=== PATIENT | male | born 1975 | race African-American/Black ===

== ENCOUNTER 2018-01-13 03:58 | Emergency (ER) | payer OTHER ==
[~2018-01-13] VITALS: Ht 188 cm; Wt 81.6 kg
--- NOTE | 2018-01-13 04:15 | NUR ---
TO BED 11 AMBULATORY C/O SI WITH PLAN, "WANT TO JUMP OFF FREEWAY". PT AAOX4 NO ACUTE DISTRESS NOTED, RESP EVEN AND UNLABORED. PT CALM AND COOPERATIVE AT THIS TIME. URINE SAMPLE COLLECTED AND SENT TO LAB.
--- NOTE | 2018-01-13 04:32 | NUR ---
ER MD AT BEDSIDE TO EVAL PT WITH ORDERS RECEIVED.
--- NOTE | 2018-01-13 04:50 | NUR ---
BLOOD DRAWN BY SAWMILL OR TIMBER YARD WORKER.
[2018-01-13 04:59] LABS: BASOPHILS % (AUTO) 0.8 % (0.0-2.0); EOSINOPHILS % (AUTO) 3.2 % (0.0-6.0); HEMATOCRIT 42 % (39-51); HEMOGLOBIN 14.3 g/dL (13.5-17.5); LYMPHOCYTES # (AUTO) 2.1 /CMM (0.8-4.8); LYMPHOCYTES % (AUTO) 42.5 % (20.0-44.0); MEAN CORPUSCULAR HGB CONC 34 g/dl (31.0-36.0); MEAN CORPUSCULAR VOLUME 92 fL (80-96); MONOCYTES # (AUTO) 0.4 /CMM (0.1-1.30); MONOCYTES % (AUTO) 8.3 % (2.0-12.0); NEUTROPHILS # (AUTO) 2.2 /CMM (1.8-8.9); NEUTROPHILS % (AUTO) 45.2 % (43.0-81.0); PLATELET COUNT (AUTO) 233 /CMM (150-450); RDW COEFFICIENT OF VARIATION 15.3 (11.5-15.0); WHITE BLOOD COUNT (AUTO) 4.8 K/uL (4.3-11.0)
[2018-01-13 05:10] LABS: CALCIUM, SERUM 8.9 mg/dL (8.5-10.1); CARBON DIOXIDE 28 mmol/L (21-32); CHLORIDE 104 mmol/L (98-107); GLUCOSE 69 mg/dL (74-106); POTASSIUM 4.3 mmol/L (3.5-5.1); SODIUM SERUM 139 mmol/L (136-145); UREA NITROGEN, BLOOD 21 mg/dL (7-18)
[2018-01-13 05:20] LABS: ALANINE AMINOTRANSFERASE 37 U/L (12-78); ALBUMIN 3.7 g/dL (3.4-5.0); ALCOHOL, BLOOD < 3 mg/dL (0-0); ALKALINE PHOSPHATASE 79 U/L (46-116); ASPARTATE AMINOTRANSFERASE 55 U/L (15-37); BILIRUBIN,DIRECT 0.1 mg/dL (0.0-0.2); BILIRUBIN,TOTAL 0.4 mg/dL (0.2-1.0); SALICYLATE 5.4 mg/dL (2.8-20.0); TOTAL PROTEIN, SERUM 7.4 g/dL (6.4-8.2)
[2018-01-13 05:21] LABS: ACETAMINOPHEN 0 ug/ml (10-30)
[2018-01-13 05:22] LABS: THYROID STIMULATING HORMONE 1.018 uIU/mL (0.358-3.74)
--- NOTE | 2018-01-13 06:21 | NUR ---
PT ASLEEP, NO ACUTE DISTRESS NOTED, RESP EVEN AND UNLABORED. NO PAIN OR DISCOMFORT NOTED. CALL LIGHT WITHIN REACH. WILL CONTINUE TO MONITOR PT CLOSELY.
--- NOTE | 2018-01-13 07:10 | NUR ---
RECIEVED PATIENT IN ED BED 11. PT IS ASLEEP. AROUSABLE BY VERBAL AND TACTILE STIMULATION. VSS NAD RR EVEN AND UNLABORED. PENDING PSYCH EVALUATION
--- NOTE | 2018-01-13 08:55 | NUR ---
PINKY TIP PRINTER AT BEDSIDE FOR PSYCH EVAL
--- NOTE | 2018-01-13 09:08 | NUR ---
jeff chuw placed patient on [id number] hold for DTS
--- NOTE | 2018-01-13 10:13 | NUR ---
CALLED TRANSPORT TO [facility] IS 104 TRIP NUMBER [id number] ALICE
[2018-01-13] MEDS ORDERED: HALOPERIDOL LACTATE INJ 5 MG/ML VIAL ONE (11:06)
[2018-01-13] MEDS ORDERED: LORAZEPAM INJ 2 MG/ML VIAL ONE (11:08)
--- NOTE | 2018-01-13 11:09 | NUR ---
AMBULZ #118 AT BEDSIDE TO PCK UP THE PATIENT. Patient discharged to [facility] transportation in stable condition. Written and verbal after care instructions given to EMS, verbalizes understanding of instruction.
[2018-01-13 11:12] VITALS: BP 128/68
[2018-01-13] MEDS ORDERED: LORAZEPAM INJ 2 MG/ML VIAL IM ONE (11:30)
[2018-01-13] MEDS ORDERED: HALOPERIDOL LACTATE INJ 5 MG/ML VIAL IM ONE (11:30)
== END 2018-01-13 11:13 ==
LOC: ER 04:00
DX: F31.9 Bipolar disorder, unspecified (principal); F98.8 Other specified behavioral and emotional disorders with onset usually occurring in childhood and adolescence; Z88.8 Allergy status to other drugs, medicaments and biological substances
CPT/HCPCS: 36415; 80048; 80076; 80305; 80329; 84443; 85025; 96372 ×2; 99285; A4606; G0480 ×2; J1630; J2060; Z7610

== ENCOUNTER 2018-06-26 23:17 | Emergency (ER) | payer MEDICAID, OTHER ==
--- NOTE | 2018-06-26 23:25 | NUR ---
CALLED PT NAME X 3. NO ONE RESPONDED IN WR AT THIS TIME. WILL FOLLOW UP.
--- NOTE | 2018-06-27 | NUR ---
CALLED PT NAME X 3. NO ONE RESPONDED IN WR AT THIS TIME. PER ADMITTING PT STEPPED OUTSIDE. WILL FOLLW UP.
--- NOTE | 2018-06-27 00:38 | NUR ---
CALLED PT IN WR. NO ONE RESPONDED.
== END 2018-06-27 00:39 | disposition home or self-care (01) ==
LOC: ER 23:21
DX: Z53.21 Procedure and treatment not carried out due to patient leaving prior to being seen by health care provider (principal)

== ENCOUNTER 2019-01-18 14:59 | Emergency (ER) | payer MEDICAID, OTHER ==
[~2019-01-18] VITALS: Ht 188 cm; Wt 76.2 kg
--- NOTE | 2019-01-18 15:13 | NUR ---
CALLED TO TRIAGE NO ANSWER.
--- NOTE | 2019-01-18 15:25 | NUR ---
CAME IN FOR SUICIDAL IDEATION " I WANT TO RUN THRU TRAFFIC." TO ER BED 13, HOOKED TO MONITOR, PROVIDED W WARM BLANKET, AWAITING MD VERA
--- NOTE | 2019-01-18 15:32 | NUR ---
DR DAO AT BEDSIDE
--- NOTE | 2019-01-18 15:40 | NUR ---
BOAT DRIVER AT BEDSIDE
[2019-01-18 15:42] LABS: BASOPHILS # (AUTO) 0.1 /CMM (0.0-0.2); BASOPHILS % (AUTO) 0.7 % (0.0-2.0); EOSINOPHILS % (AUTO) 0.8 % (0.0-6.0); HEMATOCRIT 44 % (39-51); HEMOGLOBIN 14.8 g/dL (13.5-17.5); LYMPHOCYTES # (AUTO) 2.5 /CMM (0.8-4.8); LYMPHOCYTES % (AUTO) 31.2 % (20.0-44.0); MEAN CORPUSCULAR HGB CONC 34 g/dl (31.0-36.0); MEAN CORPUSCULAR VOLUME 91 fL (80-96); MONOCYTES # (AUTO) 0.7 /CMM (0.1-1.30); MONOCYTES % (AUTO) 8.4 % (2.0-12.0); NEUTROPHILS # (AUTO) 4.6 /CMM (1.8-8.9); NEUTROPHILS % (AUTO) 58.9 % (43.0-81.0); PLATELET COUNT (AUTO) 261 /CMM (150-450); RED BLOOD CELL COUNT(AUTO) 4.79 MIL/uL (4.5-6.0); WHITE BLOOD COUNT (AUTO) 7.9 K/uL (4.3-11.0)
[2019-01-18 15:45] LABS: APPEARANCE,URINE Clear (CLEAR); BILIRUBIN,URINE Negative (NEGATIVE); BLOOD, URINE Negative Ery/uL (NEGATIVE); COLOR,URINE Yellow (YELLOW); KETONES,URINE Negative (NEGATIVE); LEUKOCYTE ESTERASE ,URINE Negative (NEGATIVE); NITRITE, URINE Negative (NEGATIVE); PROTEIN,URINE Negative (NEGATIVE); UGLUCOSE Negative (NEGATIVE); UROBILINOGEN,URINE 0.2 EU/dL (0.2)
--- NOTE | 2019-01-18 16:03 | NUR ---
PROVIDED W MEAL TRAY
[2019-01-18 16:04] LABS: ALANINE AMINOTRANSFERASE 63 U/L (12-78); ALBUMIN 3.8 g/dL (3.4-5.0); ALCOHOL, BLOOD < 3 mg/dL (0-0); ALKALINE PHOSPHATASE 89 U/L (46-116); ASPARTATE AMINOTRANSFERASE 59 U/L (15-37); BILIRUBIN,DIRECT 0.1 mg/dL (0.0-0.2); BILIRUBIN,TOTAL 0.5 mg/dL (0.2-1.0); CARBON DIOXIDE 30 mmol/L (21-32); CHLORIDE 100 mmol/L (98-107); GLUCOSE 88 mg/dL (74-106); POTASSIUM 3.9 mmol/L (3.5-5.1); SODIUM SERUM 135 mmol/L (136-145); TOTAL PROTEIN, SERUM 7.8 g/dL (6.4-8.2); UREA NITROGEN, BLOOD 16 mg/dL (7-18)
[2019-01-18 16:07] LABS: ACETAMINOPHEN < 10 ug/ml (10-30); SALICYLATE 2.7 mg/dL (2.8-20.0)
--- NOTE | 2019-01-18 16:40 | NUR ---
CRISIS TOBACCO STRIPPER HAND RUPERTO RODRÍGUEZ AT BEDSIDE
--- NOTE | 2019-01-18 18:30 | NUR ---
PT DENIES SI AT THIS TIME. WOULD LIKE TO BE RELEASED. MENTIONED HE IS PLANNING TO GO TO HIS MOTHER IN [place]. AWARE.
--- NOTE | 2019-01-18 18:45 | NUR ---
PT SIGNED HOMELESS WAIVER FORM.
[2019-01-18 18:55] VITALS: BP 138/80
--- NOTE | 2019-01-18 19:02 | NUR ---
Patient given written and verbal discharge instructions. Patient verbalizes understanding of instructions. Patient is ambulatory with steady gait. Refuses offer of [facility] placement. Patient given list of available shelters in surrounding area. removed name band, pt provided with shirt and jacket. Has undershirt, pants and rubbershoes.
== END 2019-01-18 19:12 | disposition home or self-care (01) ==
LOC: ER 15:05
DX: R45.851 Suicidal ideations (principal); F19.10 Other psychoactive substance abuse, uncomplicated; F31.9 Bipolar disorder, unspecified; F12.10 Cannabis abuse, uncomplicated; F15.10 Other stimulant abuse, uncomplicated; Z88.8 Allergy status to other drugs, medicaments and biological substances; Z88.6 Allergy status to analgesic agent
CPT/HCPCS: 36415; 80048; 80076; 80305; 80307; 80329; 81001; 85025; 99284; G0480; 81000-TC

== ENCOUNTER 2020-08-05 18:14 | Emergency (ER) | payer BC, OTHER ==
[~2020-08-05] VITALS: Ht 190.5 cm; Wt 83.9 kg
--- NOTE | 2020-08-05 18:41 | NUR ---
PT SELF PRESENTS TO ED C/O SUICIDAL IDEATION AND WITH PLAN TO OVERDOSE ON "PILLS" PATIENT DENIES ANY OTHER COMPLAINS AT THIS TIME. PT IS AAOX4. 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 AWAITING MD VERA.
--- NOTE | 2020-08-05 18:50 | NUR ---
DR ONTIVEROS IN TO SEE PATIENT FOR EVAL.
--- NOTE | 2020-08-05 19:11 | NUR ---
ADMINISTRATIVE SUPPORT ASSISTANT AT BEDSIDE FOR BLOOD DRAW.
[2020-08-05 19:14] LABS: BASOPHILS % (AUTO) 0.6 % (0.0-2.0); EOSINOPHILS % (AUTO) 0.9 % (0.0-6.0); HEMATOCRIT 42 % (39-51); HEMOGLOBIN 14.2 g/dL (13.5-17.5); LYMPHOCYTES # (AUTO) 2.1 /CMM (0.8-4.8); LYMPHOCYTES % (AUTO) 30.6 % (20.0-44.0); MEAN CORPUSCULAR HGB CONC 34 g/dl (31.0-36.0); MEAN CORPUSCULAR VOLUME 91 fL (80-96); MONOCYTES # (AUTO) 0.7 /CMM (0.1-1.30); MONOCYTES % (AUTO) 9.7 % (2.0-12.0); NEUTROPHILS # (AUTO) 4.1 /CMM (1.8-8.9); NEUTROPHILS % (AUTO) 58.2 % (43.0-81.0); PLATELET COUNT (AUTO) 237 /CMM (150-450); RED BLOOD CELL COUNT(AUTO) 4.61 MIL/uL (4.5-6.0)
--- NOTE | 2020-08-05 19:30 | NUR ---
REPORT GIVEN TO JOSE CHIU FOR [facility].
[2020-08-05 19:59] LABS: CALCIUM, SERUM 8.9 mg/dL (8.5-10.1); CARBON DIOXIDE 33 mmol/L (21-32); CHLORIDE 100 mmol/L (98-107); GLUCOSE 93 mg/dL (74-106); SODIUM SERUM 140 mmol/L (136-145); UREA NITROGEN, BLOOD 18 mg/dL (7-18)
[2020-08-05 20:07] LABS: ALANINE AMINOTRANSFERASE 39 U/L (12-78); ALBUMIN 3.9 g/dL (3.4-5.0); ALCOHOL, BLOOD < 3 mg/dL (0-0); ALKALINE PHOSPHATASE 79 U/L (46-116); ASPARTATE AMINOTRANSFERASE 41 U/L (15-37); BILIRUBIN,DIRECT 0.1 mg/dL (0.0-0.2); BILIRUBIN,TOTAL 0.5 mg/dL (0.2-1.0); TOTAL PROTEIN, SERUM 7.8 g/dL (6.4-8.2)
[2020-08-05 20:09] LABS: BILIRUBIN,URINE Negative (NEGATIVE); COLOR,URINE YELLOW (YELLOW); LEUKOCYTE ESTERASE ,URINE Negative (NEGATIVE); NITRITE, URINE Negative (NEGATIVE); PH,URINE 6.5 (5.0-8.0); PROTEIN,URINE Trace mg/dl (NEGATIVE); UGLUCOSE Negative (NEGATIVE); UROBILINOGEN,URINE 0.2 EU/dL (0.2)
[2020-08-05 20:19] LABS: BACTERIA,URINE Rare /HPF (None Seen); RBC,URINE NONE SEEN /HPF (0-2); SQUAMOUS EPITHELIAL CELL,UR Few /HPF (None Seen); WBC,URINE NONE SEEN /HPF (0-3)
--- NOTE | 2020-08-05 20:53 | NUR ---
FACESHEET AND CLINICALS FAXED TO [facility].
--- NOTE | 2020-08-05 21:42 | NUR ---
CALL FROM [facility]. UNABLE TO ACCEPT PT.
--- NOTE | 2020-08-05 22:46 | NUR ---
SPOKE TO THE PT REGARING NOT HAVING BEDS. PT DENIES SI AND HI. STATED HE WILL GO HOME AND TRY TOMORROW. AMBULATORY WITH STEAD GAIT.
[2020-08-06 01:15] VITALS: BP 143/86
== END 2020-08-05 22:46 | disposition home or self-care (01) ==
LOC: ER 18:20
DX: R45.851 Suicidal ideations (principal); F31.9 Bipolar disorder, unspecified; F98.8 Other specified behavioral and emotional disorders with onset usually occurring in childhood and adolescence; Z88.6 Allergy status to analgesic agent; Z88.8 Allergy status to other drugs, medicaments and biological substances; Z20.822 Contact with and (suspected) exposure to COVID-19
CPT/HCPCS: 36415; 80048; 80076; 80299; 80307; 80320; 81001; 85025; 87426; 99285; C9803; G0480

== ENCOUNTER 2021-04-24 12:36 | Emergency (ER) | payer BC ==
[~2021-04-24] VITALS: Ht 190.5 cm; Wt 74.8 kg
--- NOTE | 2021-04-24 12:57 | NUR ---
To ER bed 19, +SI "i want to overdose on my pills", wan't voluntary admission to psych, aaox4, breathing even and non labored, 1:1 supervision.
[2021-04-24 13:53] LABS: BASOPHILS % (AUTO) 0.6 % (0.0-2.0); EOSINOPHILS % (AUTO) 1.3 % (0.0-6.0); HEMATOCRIT 42 % (39-51); HEMOGLOBIN 14.6 g/dL (13.5-17.5); LYMPHOCYTES % (AUTO) 27.1 % (20.0-44.0); MEAN CORPUSCULAR HGB CONC 35 g/dl (31.0-36.0); MEAN CORPUSCULAR VOLUME 90 fL (80-96); MONOCYTES # (AUTO) 0.6 K/uL (0.1-1.30); MONOCYTES % (AUTO) 8.3 % (2.0-12.0); NEUTROPHILS # (AUTO) 4.5 K/uL (1.8-8.9); NEUTROPHILS % (AUTO) 62.7 % (43.0-81.0); PLATELET COUNT (AUTO) 253 K/uL (150-450); RED BLOOD CELL COUNT(AUTO) 4.67 MIL/uL (4.5-6.0); WHITE BLOOD COUNT (AUTO) 7.2 K/uL (4.3-11.0)
[2021-04-24 13:58] LABS: BILIRUBIN,URINE NEGATIVE (NEGATIVE); COLOR,URINE YELLOW (YELLOW); LEUKOCYTE ESTERASE ,URINE NEGATIVE (NEGATIVE); NITRITE, URINE NEGATIVE (NEGATIVE); PROTEIN,URINE NEGATIVE (NEGATIVE); UGLUCOSE NEGATIVE (NEGATIVE); UROBILINOGEN,URINE 0.2 EU/dL (0.2)
[2021-04-24 15:16] LABS: CALCIUM, SERUM 8.7 mg/dL (8.5-10.1); CARBON DIOXIDE 24 mmol/L (21-32); CHLORIDE 98 mmol/L (98-107); CREATININE 0.8 mg/dL (0.6-1.3); GLUCOSE 107 mg/dL (74-106); POTASSIUM 3.3 mmol/L (3.5-5.1); SODIUM SERUM 136 mmol/L (136-145); UREA NITROGEN, BLOOD 11 mg/dL (7-18)
[2021-04-24 15:23] LABS: ALANINE AMINOTRANSFERASE 34 U/L (12-78); ALBUMIN 3.4 g/dL (3.4-5.0); ALCOHOL, BLOOD < 3 mg/dL (0-0); ALKALINE PHOSPHATASE 94 U/L (46-116); ASPARTATE AMINOTRANSFERASE 37 U/L (15-37); BILIRUBIN,DIRECT 0.1 mg/dL (0.0-0.2); BILIRUBIN,TOTAL 0.3 mg/dL (0.2-1.0); TOTAL PROTEIN, SERUM 7.8 g/dL (6.4-8.2)
--- NOTE | 2021-04-24 18:25 | NUR ---
[facility]ED CLIN[facility]ALS [facility]
--- NOTE | 2021-04-24 18:58 | NUR ---
CALLED [facility] INTAKE AWAITING ACCEPTANCE
--- NOTE | 2021-04-24 20:26 | NUR ---
PT PROVIDED WITH WARM BLANKETS AND JUICE.
--- NOTE | 2021-04-24 23:34 | NUR ---
PER ART PT ACCEPTED [facility] UNDER DR FARIAS NUMBER FOR REPORT X [phone] ROOM TO BE GIVEN DURING REPORT
--- NOTE | 2021-04-24 23:40 | NUR ---
[facility] ETA 0040 HOURS
--- NOTE | 2021-04-24 23:55 | NUR ---
REPORT GIVEN TO VESTAL TONEY PARMAR RN FOR [facility]. AWAITING AMBULANCE. PT COMPLIANT, AND COOPERATIVE. VSS
--- NOTE | 2021-04-25 01:44 | NUR ---
PT TRANSFERRED TO [facility] VIA [facility]. VSS. A/OX4
--- NOTE | 2021-04-25 02:07 | NUR ---
REPORT GIVEN TP EMS AT BEDSIDE
[2021-04-25 04:18] VITALS: BP 124/68
== END 2021-04-25 02:10 ==
LOC: ER 12:40
DX: R45.851 Suicidal ideations (principal); Z20.822 Contact with and (suspected) exposure to COVID-19; F31.9 Bipolar disorder, unspecified; F98.8 Other specified behavioral and emotional disorders with onset usually occurring in childhood and adolescence; Z59.0 Homelessness; F19.10 Other psychoactive substance abuse, uncomplicated; F17.200 Nicotine dependence, unspecified, uncomplicated
CPT/HCPCS: 36415; 80048; 80076; 80143; 80307; 80320; 81003; 85025; 87426; 99285; C9803; G0480